=== PATIENT | female | born 1985 | race Caucasian/White ===

== ENCOUNTER 2016-12-28 09:59 | Emergency (ER) | payer SELFPAY ==
[~2016-12-28] VITALS: Ht 170.2 cm; Wt 90.0 kg
[2016-12-28] MEDS ORDERED: MORPHINE SULFATE 4 MG/ML INJ IV PUSH ONE (10:15)
[2016-12-28] MEDS ORDERED: ONDANSETRON HCL 4 MG/2 ML VIAL IV ONE (10:15)
--- NOTE | 2016-12-28 10:18 | PD ---
HPI Chief Complaint: Injury Time Seen by Provider: 10:07 Travel History International Travel<30 days: No Contact w/Intl Traveler<30days: No Traveled to known affect area: No History of Present Illness HPI The patient was seen and examined in the presence of the nurse. She complains of left ankle pain. Duration 1 hour. Pain is severe. She was walking in a parking lot and stepped into a pothole and felt her left ankle snap. No alleviating factors. Worse with weightbearing. She is visiting from [place]. [facility] Past Medical History LMP: AT THIS TIME Social History Alcohol Use: No Tobacco Use: No Substance Use: No Allergies-Medications (Allergen,Severity, Reaction): Coded Allergies: No Known Allergies (Unverified , 12/28/16) Reported Meds & Prescriptions Reported Meds & Active Scripts Active Percocet (Oxycodone-Acetaminophen) 5-325 mg Tab 1 Tab PO Q6H PRN Review of Systems General / Constitutional: No: Fever Eyes: No: Visual changes HENT: No: Headaches Cardiovascular: No: Chest Pain or Discomfort Respiratory: No: Shortness of Breath Gastrointestinal: No: Abdominal Pain Genitourinary: No: Dysuria Musculoskeletal: Positive: Pain Skin: No Rash Neurologic: No: Weakness Psychiatric: No: Depression Endocrine: No: Polydipsia Hematologic/Lymphatic: No: Easy Bruising Physical Exam Narrative GENERAL: Well-nourished, well-developed patient in no apparent distress. SKIN: Warm and dry. HEAD: Atraumatic. Normocephalic. EYES: Pupils equal and round. No scleral icterus. No injection or drainage. ENT: No nasal bleeding or discharge. Mucous membranes pink and moist. NECK: Trachea midline. No JVD. CARDIOVASCULAR: Regular rate and rhythm. No murmur appreciated. RESPIRATORY: No accessory muscle use. Clear to auscultation. Breath sounds equal bilaterally. GASTROINTESTINAL: Abdomen soft, non-tender, nondistended. Hepatic and splenic margins not palpable. MUSCULOSKELETAL: Patient has swelling and tenderness at the left lateral malleolus. Pulse and sensation intact. No open wound. No clubbing. No cyanosis. No edema. NEUROLOGICAL: Awake and alert. No obvious cranial nerve deficits. Motor grossly within normal limits. Normal speech. PSYCHIATRIC: Appropriate mood and affect; insight and judgment normal. Data Data Orders Ondansetron Inj (Zofran Inj) (12/28/16 10:15) Morphine Inj (Morphine Inj) (12/28/16 10:15) Ankle, Complete ([id number]) (12/28/16 ) Iv Access Insert/Monitor (12/28/16 10:15) Crutches (12/28/16 11:15) Splint Or Brace Apply/Monitor (12/28/16 11:15) MDM Medical Decision Making Medical Screen Exam Complete: Yes Emergency Medical Condition: Yes Medical Record Reviewed: Yes Differential Diagnosis Ankle fracture, ankle dislocation, contusion Narrative Course I have reviewed the patient's electronic medical record. IV placed I gave her dose of IV Zofran and IV morphine for symptom relief I reviewed her left ankle x-rays which show soft tissue swelling but no acute fracture. There is an old well-corticated avulsion fragment from an old injury I placed her in a stirrup splint and gave her crutches. I wrote her pain prescription. Recommend ice and elevation and follow-up with her physician Diagnosis Primary Impression: Left ankle sprain Qualified Code: S93.432A - Sprain of tibiofibular ligament of left ankle, initial encounter Additional Instructions: The patient was advised to follow up with their physician and return if they worsen. The patient was warned about potential sedation for the medications they will receive on prescription. Ice and elevate left ankle, use crutches Med/Other Pt SpecificInfo: Prescription(s) given Scripts Oxycodone-Acetaminophen (Percocet)5-325 mg Tab1 Tab PO Q6H PRN (PAIN) #15 TAB Ref 0 Prov:Foster Hoffmann MD 12/28/16 Disposition: 01 DISCHARGE HOME Condition: Stable Foster Hoffmann MD Dec 28, 2016 10:18
--- NOTE | 2016-12-28 10:41 | RADRPT ---
EXAM DATE/TIME: 12/28/2016 10:41 [facility] COMPARISON: No previous studies available for comparison. INDICATIONS : Left ankle pain, fell MEDICAL HISTORY : None. SURGICAL HISTORY : None. ENCOUNTER: Initial ACUITY: 1 day PAIN SCORE: 10/10 LOCATION: Right Ankle FINDINGS: 1 cm ossicle seen just distal to the tip of the lateral malleolus. It does not have a convincingly ac match-e-be-nash-she-wish band appearance but there is mild lateral soft tissue swelling. No definitively acute fracture demonst rated. The distal tibia is normal. CONCLUSION: Lateral soft tissue swelling without evidence of an acute fracture. Large but nonacute appearing ATF avulsion fracture fragment noted. Sixto Richard MD on December 28, 2016 at 10:37 Board Certified Radiologist. This report was verified electronically.
[2016-12-28] MEDS ORDERED: PERC5TAB12 PO (11:17)
== END 2016-12-28 12:28 | disposition home or self-care (01) ==
LOC: NEPC 09:59
DX: S93.402A Sprain of unspecified ligament of left ankle, initial encounter (principal); W18.42XA Slipping, tripping and stumbling without falling due to stepping into hole or opening, initial encounter; Y93.01 Activity, walking, marching and hiking; Y92.481 Parking lot as the place of occurrence of the external cause; Y99.9 Unspecified external cause status
CPT/HCPCS: 73610; 96374; 96375; 99283; E0113; J2270; J2405; L1906